=== PATIENT | female | born 1935 | race Caucasian/White ===

== ENCOUNTER → 2016-10-15 | Outpatient (CLI) | payer MEDICARE, OTHER | LOC: LAB.O 10:22 | DX: N18.3 Chronic kidney disease, stage 3 (moderate) (principal); I12.9 Hypertensive chronic kidney disease with stage 1 through stage 4 chronic kidney disease, or unspecified chronic kidney disease; E11.22 Type 2 diabetes mellitus with diabetic chronic kidney disease; M19.90 Unspecified osteoarthritis, unspecified site; N25.81 Secondary hyperparathyroidism of renal origin; Z90.5 Acquired absence of kidney ==

== ENCOUNTER 2016-11-11 12:14 | Emergency (ER) | payer MEDICARE, OTHER ==
[2016-11-11] MEDS ORDERED: SODIUM CHLORIDE 0.9% 1000ML 500 ML IVS ONE (14:46)
--- NOTE | 2016-11-11 14:50 | ED.PDOC ---
History of Present Illness - General Chief Complaint: GI Problem Stated Complaint: Abd pain/diarrhea Time Seen by Provider: 11/11/16 12:53 Source: patient, RN notes reviewed, Vital Signs reviewed, family Exam Limitations: clinical condition - History of Present Illness Initial Comments: Patient is an 81 y/o female who was brought in by EMS. Patient lives in assisted living. Her granddaughter went to her apt. and found patient long-term on the couch and floor with diarrhea covering her apartment. Patient has abdominal pain to her left side. She is unable to rate it or describe the pain. She had previously been treated for E. coli in her urine with 5 days of Levaquin which she finished 4 days ago. Patient's grand daughter also reports that 4 days ago, Patient hit her head on the side of the car. Although she was known to be ok on Friday, it is unknown if she was ok on Friday or Friday. Timing/Duration: unsure Severity: severe Improving Factors: nothing Worsening Factors: nothing Associated Symptoms: malaise, nausea/vomiting, weakness Allergies/Adverse Reactions: Allergies Infliximab [From Remicade] Allergy (Verified 11/11/16 13:33) NSAIDs Allergy (Verified 11/11/16 13:33) Statins Allergy (Verified 11/11/16 13:33) Sulfa Antibiotics Allergy (Verified 11/11/16 13:33) Home Medications: Ambulatory Orders Buprenorphine [Butrans] 15 mcg TD WKLY 11/11/16 Furosemide 20 mg PO DAILY 11/11/16 Gabapentin 300 mg PO BEDTIME 11/11/16 Hydrocodone-Acetaminophen [Hydrocodone/Acetaminophen 5-325 mg] 1 tab PO BID 03/22 Hydroxychloroquine Sulfate [Hydroxychloroquine Sulfat] 200 mg PO DAILY 11/11/16 Leflunomide 10 mg PO DAILY 11/11/16 Lisinopril 20 mg PO DAILY 11/11/16 Metoprolol Succinate [Metoprolol Succinate ER] 100 mg PO BEDTIME 11/11/16 Verapamil HCl ER [Isoptin SR] 240 mg PO DAILY 11/11/16 hydrALAZINE HCl [(None)] 50 mg PO TID 11/11/16 Review of Systems - Review of Systems Constitutional: States: weakness EENTM: States: no symptoms reported Respiratory: States: short of breath Cardiology: States: no symptoms reported Gastrointestinal/Abdominal: States: abdominal pain, diarrhea Genitourinary: States: no symptoms reported Musculoskeletal: States: no symptoms reported Skin: States: no symptoms reported Neurological: States: no symptoms reported Endocrine: States: no symptoms reported Hematologic/Lymphatic: States: no symptoms reported All other Systems: Reviewed and Negative Past Medical History (General) - Patient Medical History Hx Stroke: No Hx Cardiac Disorders: Yes Hx Hypertension: Yes Hx Diabetes: No Hx Cancer: No Hx Hepatitis C: No - Vaccination History Hx Tetanus, Diphtheria Vaccination: No Hx Influenza Vaccination: No Hx Pneumococcal Vaccination: Yes Immunizations Up to Date: No - Social History Hx Tobacco Use: No Hx Chewing Tobacco Use: No Hx Alcohol Use: No Hx Substance Use: No Hx Substance Use Treatment: No Hx Depression: No Feels Threatened In Home Enviroment: No Feels Threatened In a Relationship: No Hx Physical Abuse: No Hx Emotional Abuse: No Hx Suspected Abuse: No - Female History Patient is a Female of Child Bearing Age (10 -59 yrs old): No Patient : No Family Medical History - Family History Grandparents Family History: Unknown Physical Exam - Physical Exam General Appearance: Obvious distress, Ill Appearing Respiratory: lungs clear, normal breath sounds, no respiratory distress, no accessory muscle use Cardiovascular/Chest: regular rate, rhythm, no edema, no murmur Gastrointestinal/Abdominal: soft, no organomegaly, no pulsatile mass, guarding, tenderness - Left side of abdomen Back Exam: CVA tenderness (L) Extremity: pedal edema - Trace, right greater than left Neurologic: motor weakness, depressed affect, disoriented x 3 Skin Exam: warm/dry, pallor Progress - Progress Progress: 11/11/16 18:21 Attempt to transfer was initially started at 1700. We finally received acceptance at 1820 from [facility]. - Results/Orders Results/Orders: 11/11/16 11/11/16 11/11/16 12:54 13:14 14:00 Temperature 98.2 F Pulse Rate [R 86 92 H 88 Arm] Respiratory 20 20 20 Rate Blood Pressure 129/57 122/58 130/65 [R Arm] O2 Sat by Pulse 92 L 89 L 90 L Oximetry 11/11/16 11/11/16 11/11/16 14:53 16:00 17:00 Temperature Pulse Rate [R 87 68 88 Arm] Respiratory 20 18 20 Rate Blood Pressure 132/64 136/60 123/49 [R Arm] O2 Sat by Pulse 91 L 98 97 Oximetry 11/11/16 17:52 Temperature Pulse Rate [R 93 H Arm] Respiratory 20 Rate Blood Pressure 113/50 [R Arm] O2 Sat by Pulse 97 Oximetry 11/11/16 14:53 CLOSTRIDIUM DIFFICILE AG/TOXIN Stat 11/11/16 17:52 URINALYSIS Stat Laboratory Results WBC 12.7 K/mm3 (4.8-10.8) H 11/11/16 13:34 RBC 4.66 M/mm3 (4.20-5.40) 11/11/16 13:34 Hgb 13.3 gm/dL (12.0-16.0) 11/11/16 13:34 Hct 40.7 % (36.0-47.0) 11/11/16 13:34 MCV 87.4 fl (81.0-99.0) 11/11/16 13:34 MCH 28.5 pg (27.0-31.0) 11/11/16 13:34 MCHC 32.5 g/dL (33.0-37.0) L 11/11/16 13:34 RDW 14.9 % (11.5-14.5) H 11/11/16 13:34 Plt Count 165 K/mm3 (130-400) 11/11/16 13:34 MPV 9.8 fl (7.40-10.4) 11/11/16 13:34 Absolute Neuts (auto) 11.10 K/uL (1.8-6.8) H 11/11/16 13:34 Absolute Lymphs (auto) 1.00 K/uL (1.0-3.4) 11/11/16 13:34 Absolute Monos (auto) 0.50 K/uL (0.2-0.8) 11/11/16 13:34 Absolute Eos (auto) 0.00 K/uL (0.0-0.4) 11/11/16 13:34 Absolute Basos (auto) 0.10 K/uL (0.0-0.1) 11/11/16 13:34 Neutrophils % 87.5 % (42.0-78.0) H 11/11/16 13:34 Lymphocytes % 7.5 % (20.0-50.0) L 11/11/16 13:34 Monocytes % 4.3 % (2.0-9.0) 11/11/16 13:34 Eosinophils % 0.3 % (1.0-5.0) L 11/11/16 13:34 Basophils % 0.4 % (0.0-2.0) 11/11/16 13:34 Sodium 139 mmol/L (135-145) 11/11/16 13:34 Potassium 5.3 mmol/L (3.6-5.0) H 11/11/16 13:34 Chloride 102 mmol/L (101-111) 11/11/16 13:34 Carbon Dioxide 24 mmol/L (21-31) 11/11/16 13:34 Anion Gap 18.3 (12-18) H 11/11/16 13:34 BUN 73 mg/dL (7-18) H 11/11/16 13:34 Creatinine 3.95 mg/dL (0.6-1.3) H 11/11/16 13:34 BUN/Creatinine Ratio 18.5 (10-20) 11/11/16 13:34 Random Glucose 151 mg/dL (70-105) H 11/11/16 13:34 Serum Osmolality 302.0 mOsm/L (275-295) H 11/11/16 13:34 Calcium 10.0 mg/dL (8.4-10.2) 11/11/16 13:34 Total Bilirubin 0.6 mg/dL (0.2-1.0) 11/11/16 13:34 AST 275 IU/L (10-42) H 11/11/16 13:34 ALT 146 IU/L (10-60) H 11/11/16 13:34 Alkaline Phosphatase 407 IU/L (42-121) H 11/11/16 13:34 Creatine Kinase 1783 IU/L (26-140) H* 11/11/16 13:34 Serum Total Protein 7.1 gm/dL (6.4-8.2) 11/11/16 13:34 Albumin 3.3 g/dl (3.2-5.5) 11/11/16 13:34 Globulin 3.8 gm/dL (2.3-3.5) H 11/11/16 13:34 Albumin/Globulin Ratio 0.9 (1.1-1.9) L 11/11/16 13:34 CT ABD/PELV without contrast: Diverticulitis Heat: No acute process - EKG/XRAY/CT CT: ABD/PELV; HEAD See progress CT Ordered: Yes CT Interpretation Call Back: No - Report sent - Consult/PCP Time Called: 18:15 Consult/PCP: Dr. Flores - tactical air control party for Dr. Willem Subramanian, Nephrology Consult Reason/Comments: No urgent need to treat hyperkalemia. Fluids at 100 mL per hour. Departure - Departure Clinical Impression: Diverticulitis large intestine w/o perforation or abscess w/o bleeding, Acute on chronic renal insufficiency, Acute hyperkalemia, Elevated creatine phosphokinase level Time of Disposition: 18:27 Disposition: Transfer to Hospital Departure Forms: ED Discharge - Pt. Copy, Patient Portal Self Enrollment Home Medications: Ambulatory Orders Buprenorphine [Butrans] 15 mcg TD WKLY 11/11/16 Furosemide 20 mg PO DAILY 11/11/16 Gabapentin 300 mg PO BEDTIME 11/11/16 Hydrocodone-Acetaminophen [Hydrocodone/Acetaminophen 5-325 mg] 1 tab PO BID 03/22 Hydroxychloroquine Sulfate [Hydroxychloroquine Sulfat] 200 mg PO DAILY 11/11/16 Leflunomide 10 mg PO DAILY 11/11/16 Lisinopril 20 mg PO DAILY 11/11/16 Metoprolol Succinate [Metoprolol Succinate ER] 100 mg PO BEDTIME 11/11/16 Verapamil HCl ER [Isoptin SR] 240 mg PO DAILY 11/11/16 hydrALAZINE HCl [(None)] 50 mg PO TID 11/11/16 Transfer to Outside Facility - Transfer Information Accepting Provider:: Dr. Gasper Lambert Accepting Facility: [facility] Reason for Transfer: ICU - Nephrology not available
--- NOTE | 2016-11-11 15:20 | CT ---
EXAM DESCRIPTION: CT ABDOMEN PELVIS WITHOUT IV CONTRAST CLINICAL HISTORY: abdominal pain - left flank and LLQ COMPARISON: None Available TECHNIQUE: CT of the abdomen and Pelvis was performed without IV contrast. FINDINGS: There is subsegmental atelectasis or scarring in the right lung base. Mural calcifications are noted in the abdominal aorta without aneurysm. The gallbladder is surgically absent. Postoperative changes are noted in the right abdominal wall related to previous hernia repair and surgical mesh placement. Some of the surgical mesh appears lax, but there is no recurrent hernia. The gallbladder is surgically absent. The liver, spleen, pancreas and adrenals are unremarkable for noncontrast technique. There is a 4.2 cm left renal cyst the right kidney is not identified and is probably surgically absent. There is a trace amount of ascites adjacent to the liver. No adenopathy. No dilated small bowel loops. No bladder wall thickening. The uterus and ovaries are unremarkable for patient's age. There is a large amount of colonic stool and gas, most apparent at the rectosigmoid colon. There is subtle pericolonic fat stranding adjacent to the same portions of the colon without diverticular disease or definite wall thickening. There is a trace amount of free low-density fluid in the pelvis, nonspecific. Degenerative and or posttraumatic changes are noted in the lumbar spine and pelvis. There is no suspicious bone lesion. Grade 1 anterolisthesis at L4-5 is likely not acute. There is degenerative disc disease at L5-S1. IMPRESSION: Large amount of colonic stool and gas, most apparent at the rectosigmoid colon with subtle pericolonic fat stranding involving portions of the descending and sigmoid colon. The possibility of developing infectious or inflammatory colitis should be considered. If clinically suspicious of ischemic colitis or if symptoms persist or worsen, repeat CT with oral and IV contrast may be helpful for further evaluation. Uncomplicated left renal cyst, but no left-sided urinary tract calculus, perinephric inflammation or other abnormality in the abdomen or pelvis to explain left flank pain. Degenerative changes in the lumbar spine and atherosclerotic vascular disease. Status post right-sided nephrectomy. Trace amount of ascites, nonspecific. Electronically signed by: Alfred Goff DO 11/11/2016 15:18
--- NOTE | 2016-11-11 15:41 | CT ---
EXAM DESCRIPTION: CT HEAD WITHOUT IV CONTRAST CLINICAL HISTORY: 81 y/o F, Closed head injury COMPARISON: None TECHNIQUE: Head CT was performed without IV contrast. FINDINGS: There is no acute intracranial hemorrhage. There is no midline shift or other mass effect. Generalized age-appropriate volume loss is noted. The ventricles and basilar cisterns are fairly well maintained. There is no posterior fossa lesion. Chronic ischemic changes are noted in the periventricular white matter, but there is no cortical edema or sulcal effacement to suggest cortical infarct. There is no soft tissue swelling or calvarial fracture. Vascular calcifications are noted. There is mucoperiosteal thickening and or fluid in the bilateral maxillary, bilateral sphenoid and left frontal sinuses. IMPRESSION: No acute intracranial abnormality. Vascular calcifications, chronic ischemic changes and age appropriate volume loss. Sinusitis, questionable acuity. Electronically signed by: Alfred Goff DO 11/11/2016 15:38
[2016-11-11] MEDS ORDERED: SODIUM CHLORIDE 0.9% 1000ML 1,000 ML IVS PRN (18:29)
[2016-11-11 21:00] VITALS: BP 131/46; TEMP 97.2; O2SAT 93
== END 2016-11-11 20:58 | disposition short-term general hospital (02) ==
LOC: ER 12:14
DX: K57.32 Diverticulitis of large intestine without perforation or abscess without bleeding (principal); E87.5 Hyperkalemia; I12.9 Hypertensive chronic kidney disease with stage 1 through stage 4 chronic kidney disease, or unspecified chronic kidney disease; N18.9 Chronic kidney disease, unspecified; R94.4 Abnormal results of kidney function studies; Z79.899 Other long term (current) drug therapy; R19.7 Diarrhea, unspecified; Z88.2 Allergy status to sulfonamides; Z88.8 Allergy status to other drugs, medicaments and biological substances